=== PATIENT | male | born 1985 | race Caucasian/White ===

== ENCOUNTER 2018-01-10 02:24 | Emergency (ER) | payer MEDICAID ==
[~2018-01-10] VITALS: Ht 188 cm; Wt 72.7 kg
[~2018-01-10 02:24] MED LIST: NO HOME MEDS
[2018-01-10 02:36] VITALS: BP 138/79
[2018-01-10] MEDS ORDERED: amoxicillin 250mg capsule PO ONE (02:45)
[2018-01-10] MEDS ORDERED: AMOX-101 PO (02:45)
== END 2018-01-10 03:00 | disposition home or self-care (01) ==
LOC: ER 02:25
DX: K04.7 Periapical abscess without sinus (principal); F17.210 Nicotine dependence, cigarettes, uncomplicated; Z79.899 Other long term (current) drug therapy
CPT/HCPCS: 99283

== ENCOUNTER 2018-07-03 08:01 | Inpatient (IN) | payer MEDICAID | END 2018-07-06 15:30 | disposition home or self-care (01) | LOC: ER 08:01 → ED HOLD 11:01 → ORTHO 4S 13:35 ==

== ENCOUNTER 2019-02-05 09:07 | Emergency (ER) | payer MEDICAID ==
[~2019-02-05] VITALS: Ht 61 cm; Wt 75.0 kg
[~2019-02-05 09:07] MED LIST changes: +LEVO250T58 PO; -NO HOME MEDS
[2019-02-05 09:15] VITALS: BP 110/58
== END 2019-02-05 09:35 | disposition left against medical advice (07) ==
LOC: ER 09:07
DX: L02.31 Cutaneous abscess of buttock (principal); Z53.21 Procedure and treatment not carried out due to patient leaving prior to being seen by health care provider; Z79.899 Other long term (current) drug therapy

== ENCOUNTER 2019-10-18 06:30 | Emergency (ER) | payer MEDICAID ==
[~2019-10-18] VITALS: Ht 188 cm; Wt 75.0 kg
[2019-10-18 06:38] VITALS: BP 114/63
[2019-10-18] MEDS ORDERED: METR500T PO (06:49)
[2019-10-18] MEDS ORDERED: AMOX500C2 PO (06:49)
[2019-10-18] MEDS ORDERED: METH4TAB81 PO (06:49)
== END 2019-10-18 07:08 | disposition home or self-care (01) ==
LOC: ER 06:31
DX: K04.7 Periapical abscess without sinus (principal); K02.9 Dental caries, unspecified; F12.90 Cannabis use, unspecified, uncomplicated; F15.90 Other stimulant use, unspecified, uncomplicated; Z60.2 Problems related to living alone; Z59.0 Homelessness; Z56.0 Unemployment, unspecified; Z72.89 Other problems related to lifestyle; Z79.899 Other long term (current) drug therapy
CPT/HCPCS: 99283

== ENCOUNTER 2019-10-26 16:38 | Emergency (ER) | payer MEDICAID ==
[~2019-10-26] VITALS: Ht 188 cm; Wt 77.0 kg
[~2019-10-26 16:38] MED LIST changes: +AMOX500C2 PO; +METH4TAB81 PO; +METR500T PO
[2019-10-26 17:03] VITALS: BP 120/58
[2019-10-26] MEDS ORDERED: PENI500T2 PO (17:17)
== END 2019-10-26 17:40 | disposition home or self-care (01) ==
LOC: ER 16:39
DX: K04.7 Periapical abscess without sinus (principal); F12.90 Cannabis use, unspecified, uncomplicated; F15.90 Other stimulant use, unspecified, uncomplicated; Z72.89 Other problems related to lifestyle; Z59.0 Homelessness; Z60.2 Problems related to living alone; Z56.0 Unemployment, unspecified; Z79.899 Other long term (current) drug therapy
CPT/HCPCS: 99283

== ENCOUNTER 2020-07-15 02:15 | Emergency (ER) | payer MEDICAID ==
[~2020-07-15] VITALS: Ht 188 cm; Wt 76.4 kg
[~2020-07-15 02:15] MED LIST changes: -AMOX500C2 PO; -METR500T PO
[2020-07-15 02:18] VITALS: BP 136/64
[2020-07-15] MEDS ORDERED: DOXY100C43 PO (02:28)
[2020-07-15] MEDS ORDERED: DOXYCYCLINE 100MG CAPSULE PO STA (02:28)
== END 2020-07-15 03:01 | disposition home or self-care (01) ==
LOC: ER 02:15
DX: L03.115 Cellulitis of right lower limb (principal); F12.90 Cannabis use, unspecified, uncomplicated; F15.90 Other stimulant use, unspecified, uncomplicated; Z79.2 Long term (current) use of antibiotics; Z79.899 Other long term (current) drug therapy; F17.200 Nicotine dependence, unspecified, uncomplicated; Z56.0 Unemployment, unspecified; Z59.0 Homelessness; Z72.89 Other problems related to lifestyle
CPT/HCPCS: 99283

== ENCOUNTER 2020-12-20 16:43 | Emergency (ER) | payer MEDICAID | END 2020-12-20 18:10 | disposition left against medical advice (07) | LOC: ER 16:43 | DX: R51.9 Headache, unspecified (principal); Z53.21 Procedure and treatment not carried out due to patient leaving prior to being seen by health care provider ==

== ENCOUNTER 2020-12-30 21:25 | Emergency (ER) | payer MEDICAID | END 2020-12-31 00:27 | disposition left against medical advice (07) | LOC: ER 21:25 | DX: T63.301A Toxic effect of unspecified spider venom, accidental (unintentional), initial encounter (principal); Z53.21 Procedure and treatment not carried out due to patient leaving prior to being seen by health care provider; Y92.89 Other specified places as the place of occurrence of the external cause ==

== ENCOUNTER 2021-12-13 21:13 | Emergency (ER) | payer MEDICAID ==
[~2021-12-13 21:13] MED LIST changes: +LEVO250T43 PO; -LEVO250T58 PO
== END 2021-12-13 23:34 | disposition left against medical advice (07) ==
LOC: ER 21:14
DX: H92.09 Otalgia, unspecified ear (principal); Z53.21 Procedure and treatment not carried out due to patient leaving prior to being seen by health care provider

== ENCOUNTER 2022-05-14 20:38 | Emergency (ER) | payer MEDICAID ==
[~2022-05-14] VITALS: Ht 188 cm; Wt 78.4 kg
[~2022-05-14 20:38] MED LIST changes: -LEVO250T43 PO; +LEVO250T74 PO
[2022-05-14 20:53] VITALS: BP 135/73
== END 2022-05-14 21:22 | disposition left against medical advice (07) ==
LOC: ER 20:38
DX: K08.89 Other specified disorders of teeth and supporting structures (principal); Z53.21 Procedure and treatment not carried out due to patient leaving prior to being seen by health care provider

== ENCOUNTER 2022-11-30 20:17 | Emergency (ER) | payer MEDICAID ==
[~2022-11-30] VITALS: Ht 188 cm; Wt 72.7 kg
[2022-11-30 20:25] VITALS: BP 129/70
[2022-11-30] MEDS ORDERED: AMOX500C96 PO (20:34)
== END 2022-11-30 20:52 | disposition home or self-care (01) ==
LOC: ER 20:18
DX: T50.901A Poisoning by unspecified drugs, medicaments and biological substances, accidental (unintentional), initial encounter (principal); K04.7 Periapical abscess without sinus; F15.20 Other stimulant dependence, uncomplicated; F12.90 Cannabis use, unspecified, uncomplicated; Z59.00 Homelessness unspecified; Z56.0 Unemployment, unspecified; Y92.89 Other specified places as the place of occurrence of the external cause
CPT/HCPCS: 99283

== ENCOUNTER 2025-05-14 20:17 | Emergency (ER) | payer MEDICAID ==
[~2025-05-14] VITALS: Ht 188 cm; Wt 99.5 kg
--- NOTE | 2025-05-14 21:15 | RADIOLOGY REPORT ---
CLINICAL INDICATION: FOOT PAIN RIGHT TECHNIQUE: 3 views DI FOOT, COMPLETE (3VW MIN) COMPARISON: None FINDINGS: Comminuted fracture of the proximal 5th metatarsal including transverse, intra- articular, and avulsion components. Overlying soft tissue swelling. No additional fracture. Normal joint alignment. IMPRESSION: 1. Comminuted fracture of the right 5th metatarsal base.
[2025-05-14] MEDS ORDERED: HYDR-3965 PO (21:22)
[2025-05-14] MEDS ORDERED: IBUP-862 PO (21:22)
--- NOTE | 2025-05-14 21:23 | Physician Documentation ---
History of Present Illness ~ Chief Complaint: Foot pain Stated Complaint: RIGHT FOOT PAIN Time Seen by MD: 20:46 OK to notify your PCP?: Yes Primary Medical Doctor: None Source: patient Mode of Arrival: POV Exam Limitations: no limitations HPI This is a 31-year-old male who states he twisted his right foot getting out in his car earlier today. That has bruising and swelling to the dorsum of the foot. He has difficulty bearing weight secondary to pain. He is requesting pain medication. Tetanus witin 5 years: No Medication Reconciliation Allergies: Coded Allergies: No Known Allergies (Unverified , 05/14/25) Discontinued Medications Levofloxacin (Levofloxacin), 750 MG PO DAILY@11 Discontinued Reason: patient no longer taking Methylprednisolone (Medrol Dosepak), 1 TAB PO UD Discontinued Reason: patient no longer taking Past Medical History Past Medical History: *MUSCULOSKELETAL*, Extremity Fracture, Cellulitis Past Surgical History: no surgical history Patient History: Patient reports no known family medical history. Alcohol Use: Occasionally Drug Use: marijuana, methamphetamine, other Lives with: Alone Lives In: Home, Homeless Occupation: unemployed Physical Exam Vital Signs: Temperature: 98.2, Source: Oral, Heart Rate: 102, Respiratory Rate: 18, BP: 134/73, Pulse Oximetry: 97, Weight: 99.550 Oxygen Flow Rate: 0 Pulse Oximetry Reflects: adequate oxygenation General Appearance: alert, WD/WN, no apparent distress Feet To inspection of the right foot there was edema and ecchymosis overlying the dorsum of the lateral aspect of the foot. There is tenderness to palpation of the proximal 5th metatarsal. No obvious crepitus or deformity. There is pain with squeezing the midfoot. Your ankle is unaffected and has full dorsiflexion, plantar flexion, inversion, eversion. He does get some referred pain from the foot with the inversion and eversion. Distal phalanges a full flexion- extension. Cap refill less than 2 seconds and brisk of the tip of the digits. Right dorsalis pedis pulses 2+. Progress Results/Orders Results/Orders Vital Signs 05/14/25 20:38 Temp 98.2 Pulse 102 Resp 18 B/P (MAP) 134/73 Pulse Ox 97 O2 Flow Rate 0 Medical Decision Making Additional information obtaine: N/A Findings X-rays show a proximal 5th metatarsal fracture. I had the patient placed in a cam walker boot and gave him crutches with crutch training. I instructed him to ice and elevate the foot frequently. You can remove the boot for showering. Follow up with the primary care physician for orthopedic referral. The patient has requested something for pain so I gave him a small amount of [place] for stro ng pain and ibuprofen for breakthrough pain. General Diff Dx:Considerations: Include: Abrasion, Contusion, Fracture, Hematoma, Laceration, Malunion, Neurovascular injury, Open fracture, Sprain, Ulcer, Other Knee Diff Dx:Considerations: Include: Abrasion, Arthritis, Contusion, DJD, Fracture-femur, Fracture-fibula, Fracture-patella, Fracture-tibia, Gout, Hematoma, Laceration, Meniscus injury, Neurovascular injury, Open fracture, Rheumatoid arthritis, Septic, Sprain, Sprain-MCL, Sprain-LCL, Sprain-ACL, Sprain-PCL, Other Ankle Diff Dx:Considerations: Include: Abrasion, Arthritis, Contusion, DJD, Fracture-metatarsal, Fracture-fibula, Fracture-tarsal, Fracture-tibia, Gout, Hematoma, Laceration, Malunion, Neurovascular injury, Nonunion, Open fracture, Osteomyelitis, Rheumatoid arthritis, Sprain, Septic, Ulcer, Other Foot Diff Dx:Considerations: Include: Abrasion, Arthritis, Cellulitis, Contusion, Dislocation, DJD, Fracture-metatarsal, Fracture-phalynx, Fracture- tarsal, Gout, Hematoma, Ingrown toenail, Laceration, Malunion, Neurovascular injury, Open fracture, Paronychia, Puncture, Rheumatoid, Sprain, Septic, Subungual hematoma, Ulcer, Other Toe Diff Dx:Considerations: Include: Abrasion, Cellulitis, Contusion, Dislocation, Felon, Fracture, Hematoma, Laceration, Neurovascular injury, Open fracture, Paronychia, Subungual hematoma, Other Additional Comment Right proximal 5th metatarsal fracture. Right foot fracture. Right foot contusion. Right foot sprain strain. Departure Disposition: 01 HOME / SELF CARE / HOMELESS Impression: Primary Impression: Displaced fracture of fifth metatarsal bone, right foot, initial encounter for closed fracture Condition: Stable Discharge Instructions: Fracture, Foot Additional Instructions: Wear the cam walker boot and use a crutches. Maintain nonweightbearing. Ice the foot for 20 minutes every 2 hours for the 1st three days and elevate over the level of the heart as much as possible. Follow up with the primary care physician for referral to an orthopedic surgeon. Return to the ER for any worsening or concerning symptoms. Referrals: NO PRIMARY CARE PROVIDER (PCP) Prescriptions Ibuprofen (Ibu) 600 Mg Tablet 1 TAB PO Q6H for 10 Days, #40 TAB 0 Refills Prov: JACINTA BLANCAS 05/14/25 Hydrocodone Bit/Acetaminophen 5/325 MG ([place] 5/325 MG) 5 Mg/325 Mg Tablet 1 TAB PO Q4H PRN for moderate or severe pain, #20 TAB Prov: JACINTA BLANCAS 05/14/25 Signature Scribe Signature: No scribe Attestation: The note accurately reflects work and decisions made by me.Jacinta GRIDER 05/14/25 21:23 JACINTA BLANCAS May 14, 2025 21:23
[2025-05-14 21:36] VITALS: BP 130/70; PULSE 99; RESP 18; TEMP 98.6; O2SAT 99
== END 2025-05-14 21:38 | disposition home or self-care (01) ==
LOC: ER 20:18
DX: S92.351A Displaced fracture of fifth metatarsal bone, right foot, initial encounter for closed fracture (principal); F15.90 Other stimulant use, unspecified, uncomplicated; F19.90 Other psychoactive substance use, unspecified, uncomplicated; F12.90 Cannabis use, unspecified, uncomplicated; Z56.0 Unemployment, unspecified; Z59.00 Homelessness unspecified; Z60.2 Problems related to living alone; Z72.89 Other problems related to lifestyle; X50.1XXA Overexertion from prolonged static or awkward postures, initial encounter; Y93.89 Activity, other specified; Y92.89 Other specified places as the place of occurrence of the external cause; Y99.8 Other external cause status
CPT/HCPCS: 73630; 99283; L4360